=== PATIENT | female | born 1940 | race Caucasian/White ===

== ENCOUNTER 2020-07-02 08:07 | Outpatient (CLI) | payer MEDICARE, MEDICAID, SELFPAY ==
--- NOTE | 2020-07-02 08:18 | MM_ITS ---
WS: [id number] Bilateral screening digital mammogram, 07/02/2020 Clinical Data: SCREENING Comparison: 05/29/2019, 04/29/2018, 04/24/2017, 04/21/2016, 04/19/2015, 04/17/2014, 01/24/2013, 07/25/2011, , 06/29/2009, 06/23/2008, 06/13/2007, 06/12/2006. Findings: The breast parenchymal pattern shows heterogeneous density No spiculated masses or clustered calcific ations are seen. There are no secondary signs of carcinoma. There are lymph nodes in the right axilla . MM/[place] [id number] Impression: 1. Negative bilateral mammogram unchanged. 2. Recommend annual screening mammograms. BIRADS: 1-Negative FOLLOW UP: 1 Year Follow-up The CAD engineering drawings checker was used.
== END 2020-07-02 08:08 | disposition home or self-care (01) ==
LOC: RADSHAW 08:15
PROVIDERS: PCP Family Medicine; Visit Provider Family Medicine
DX: Z12.31 Encounter for screening mammogram for malignant neoplasm of breast (principal)
CPT/HCPCS: 77067

== ENCOUNTER 2021-09-19 10:55 | Outpatient (CLI) | payer MEDICARE, MEDICAID, SELFPAY ==
--- NOTE | 2021-09-19 11:01 | MM_ITS ---
WS: [id number] BILATERAL SCREENING DIGITAL MAMMOGRAM WITH CAD HISTORY: SCREENING COMPARISON: 07/02/2020, 05/29/2019 and 04/29/2018 Bilateral CC and MLO views submitted. Computer aided detection analyzed. Breast composition: There are scattered areas of fibroglandular density. No suspicious masses, microc alcifications or architectural distortion. Breast arterial calcifications. MM/[place] [id number] IMPRESSION: BI-RADS: 2-Benign FOLLOW UP: 1 Year Follow-up
== END 2021-09-19 10:56 | disposition home or self-care (01) ==
LOC: RADSHAW 10:59
PROVIDERS: PCP Family Medicine; Visit Provider Family Medicine
DX: Z12.31 Encounter for screening mammogram for malignant neoplasm of breast (principal)
CPT/HCPCS: 77067

== ENCOUNTER 2021-10-18 08:31 | Outpatient (CLI) | payer MEDICARE, MEDICAID, SELFPAY ==
--- NOTE | 2021-10-18 08:56 | XR_ITS ---
WS: [email or web address] SCREENING DEXA SCAN [facility] CLINICAL INFORMATION: OSTEOPOROSIS COMPARISON: 015 FINDINGS: The L1-L4 bone mineral density measures 1.023 g/cm2. This corresponds to a T score score of -1.3 and Z score of 0.4. Left femoral neck bone mineral density measures 0.691 g/cm2. This corresponds to a T score of -2.5 an d Z score of -0.5. Right femoral neck bone mineral density measures 0.673 g/cm2. This corresponds to a T score -2.7of an d Z score of -0.7. Mean femoral neck bone mineral density measures 0.682 g/cm2. This corresponds to a T score of -2.6 an d Z score of -0.6. XR/XR DEXA axial skeleton* [id number] IMPRESSION: Osteopenia in the lumbar spine. Osteoporosis in the femoral necks at the lower end of the range. Patient's FRAX calculated 10 year probability for major osteoporotic fracture i s 43 % and osteoporotic hip fracture is 32.5%.
== END 2021-10-18 08:32 | disposition home or self-care (01) ==
LOC: RAD 08:34
PROVIDERS: PCP Family Medicine; Visit Provider Family Medicine
DX: M81.0 Age-related osteoporosis without current pathological fracture (principal); M85.88 Other specified disorders of bone density and structure, other site
CPT/HCPCS: 77080

== ENCOUNTER 2022-07-18 16:16 | Outpatient (CLI) | payer MEDICARE, MEDICAID, SELFPAY ==
--- NOTE | 2022-07-18 16:47 | CT_ITS ---
WS: [id number] CT THORACIC SPINE TECHNIQUE: Noncontrast CT of the thoracic spine with coronal and sagittal reformatted images. CLINICAL INFORMATION: CHRONIC BACK PAIN COMPARISON: 06/06/22 DLP: 1233.[address] scans at [facility] use at least one of these dose optimization techniques: automated e xposure control; mA and/or kV adjustment per patient size (includes targeted exams where dose is matc hed to clinical indication); or iterative reconstruction. FINDINGS: Mild thoracic kyphosis. Mild chronic anterior wedging in the mid thoracic spine. No acute appearing c ompression fractures. Mild thoracic curve convex RIGHT. Postoperative changes lower cervical spine. Aortic calcification. Ectatic thoracic aorta partially visualized. Bilateral adrenal nodules likely a denomas largest on the RIGHT measuring 13 mm. Normal GE junction. Slight fibrosis the lung apices. Pa rtially visualized lungs are well aerated. No significant central canal stenosis. Mild facet arthropa thy lower thoracic spine. CT/CT thoracic spin wo con* [id number] IMPRESSION: 1. Mild thoracic curve. Mild thoracic kyphosis. 2. Mild chronic anterior wedging in the mid thoracic spine. No acute appearing compression fractures. 3. Prior postoperative changes lower cervical spine. 4. No other acute findings. 5. Slightly ectatic thoracic aorta partially visualized. Distal Aortic arch me asures 3.1 cm.
== END 2022-07-18 16:17 | disposition home or self-care (01) ==
PROVIDERS: PCP Family Medicine; Visit Provider Family Medicine
DX: M40.294 Other kyphosis, thoracic region (principal); M48.54XA Collapsed vertebra, not elsewhere classified, thoracic region, initial encounter for fracture; I77.810 Thoracic aortic ectasia
CPT/HCPCS: 72128

== ENCOUNTER 2022-10-19 08:17 | Outpatient (CLI) | payer MEDICARE, MEDICAID, SELFPAY ==
--- NOTE | 2022-10-19 08:26 | MM_ITS ---
WS: [id number] BILATERAL SCREENING DIGITAL TOMOSYNTHESIS MAMMOGRAM WITH CAD HISTORY: SCREENING COMPARISON: 09/19/2021, 07/02/2020 Bilateral CC and MLO views with tomosynthesis and synthetic mammography submitted. Computer aided det ection analyzed. Breast composition: The breasts are heterogeneously dense, which may obscure small masses. No suspici ous masses, microcalcifications or architectural distortion. Benign calcifications in each breast. MM/[place] [id number] IMPRESSION: BI-RADS: 2-Benign FOLLOW UP: 1 Year Follow-up
== END 2022-10-19 08:18 | disposition home or self-care (01) ==
LOC: RAD 08:22
PROVIDERS: PCP Family Medicine; Visit Provider Family Medicine
DX: Z12.31 Encounter for screening mammogram for malignant neoplasm of breast (principal)
CPT/HCPCS: 77063; 77067

== ENCOUNTER → 2022-12-21 15:38 | Outpatient (BNVA) | payer MEDICARE, MEDICAID, SELFPAY | PROVIDERS: PCP Family Medicine; Visit Provider Dermatology | DX: L81.4 Other melanin hyperpigmentation (principal); L82.1 Other seborrheic keratosis; Z85.828 Personal history of other malignant neoplasm of skin | CPT/HCPCS: 99213 ==

== ENCOUNTER 2023-02-07 06:15 | Emergency (ER) | payer MEDICARE, MEDICAID, SELFPAY ==
[2023-02-07 06:16] VITALS: BMI 25.0
--- NOTE | 2023-02-07 06:16 | W.ED.NAVMDI ---
HPI - Nausea/Vomiting/Diarrhea General: Chief complaint: Nausea/Vomiting/Diarrhea Stated complaint: diarrhea Time Seen by Provider: 02/07/23 06:16 History of Present Illness: Ms. Mejia is an 82-year-old lady presenting to the emergency department for abdominal pain with diarrhea. Notes onset of symptoms a few hours ago and acute. Denies known specific provoking event. Since that time has had numerous episodes of nonbloody watery diarrhea associated with generalized abdominal pain with radiation to the back. The worst pain is at the patient's rectum. Intensity symptoms moderate to severe. Course has persisted. No other specific changes in health, exacerbating, or alleviating factors identified. Onset (ago): hour(s) Description of diarrhea: watery Associated nausea: Yes Associated abdominal pain: Yes Location of pain: Diffuse Radiation: other (Back) Severity: severe Quality: aching Exacerbating factors: none Relieving factors: none Associated symtoms: Reports nausea; Denies chest pain, fevers/chills, short of breath or other (Blood in stool, dark tarry stools) Review of Systems General: Reports: 10 or more systems reviewed and unremarkable except in HPI and below Card: Denies: chest pain GI: Reports: nausea PFSH ED PFSH: Medical History Fibromyalgia GERD (gastroesophageal reflux disease) HTN (hypertension) Hypothyroid Surgical History History of hysterectomy Social History Smoking and tobacco status: never smoked Physical Exam Const: COMMON NORMALS: alert GENERAL APPEARANCE: cooperative and well developed HENMT: COMMON NORMALS: normocephalic and atraumatic HEAD & SCALP: normocephalic and atraumatic Eye: COMMON NORMALS: conjunctivae normal CONJUNCTIVA: Yes conjunctivae normal SCLERA: sclerae normal Neck/C-Spine: COMMON NORMALS: supple GENERAL: Yes trachea midline Resp: COMMON NORMALS: clear to auscultation bilaterally EFFORT & INSPECTION: Yes able to speak in complete sentences AUSCULTATION: clear to auscultation bilaterally Cardio: COMMON NORMALS: regular rate and regular rhythm RATE: regular rate RHYTHM: regular rhythm GI: COMMON NORMALS: Soft to palpation PALPATION: Yes Soft to palpation, Yes Tenderness to palpation present (GI), Yes Guarding due to palpation present (GI) and No Rigid due to palpation OTHER: RN present, external hemorrhoids, no evidence of rectal prolapse. Extremity: GENERAL: Yes normal exam except as noted and No edema Neuro: COMMON NORMALS: moves all extremities SENSORIUM/ORIENTATION: Yes alert and No Orientation impaired Psych: COMMON NORMALS: mental status grossly normal and Normal thought process present THOUGHT PROCESS: Normal thought process present Course Vital Signs: Vital signs: Vital Signs Temperature 97.2 F L 02/07/23 06:19 Pulse Rate 72 02/07/23 06:52 Respiratory Rate 18 02/07/23 06:52 Blood Pressure 159/77 02/07/23 07:42 Pulse Oximetry 100 02/07/23 09:10 Oxygen Delivery Me thod Room Air 02/07/23 07:42 MDM - Nausea/Vomiting/Diarrhea Medical Decision Making 82-year-old lady presenting with abdominal and rectal pain. Exam as above. Nontoxic. Abdominal tenderness and guarding with no evidence of acute surgical abdomen. Labs with no leukocytosis, normal hemoglobin and platelet count. Metabolic panel without significant derangement. Overall no clear explanation of symptoms. CT demonstrates likely proctitis. Constipation also noted. Incidental findings discussed with patient. Patient treated during ED course with analgesia and antiemetic. She was treated with oral and MS medications and had bowel movement with improvement in pain. Plan to treat with antibiotics for proctitis and continue outpatient medication regimen for constipation. The results of ED evaluation were discussed with the patient including prescriptions and/or symptomatic cares (if applicable) including appropriate and responsible use, followup plan, and return precautions. The patient verbalized understanding and felt safe for discharge. Medical Records I reviewed the patient's medical records. Lab Data I reviewed the patient's lab results. 02/07/23 06:26 02/07/23 06:26 Radiology Impressions Abdomen/Pelvis CT 02/07/23 06:21 IMPRESSION: 1. Marked rectal distention with circumferential soft tissue edema, rectal wall thickening and presacral edema. Findings may all be related to advanced proctitis. Patient should be evaluated for distal anal lesion causing an obstruction. No adenopathy is identified. 2. Diffuse constipation. 3. Mild atherosclerosis aorta. 4. Stable bilateral adrenal adenomas. Laboratory Results WBC 9.8 10^3/uL (4.0-10.0) 02/07/23 06: RBC 5.49 10^6/uL (4.1-5.3) H 02/07/23 06:26 Hgb 14.5 g/dL (11.5-15.3) 02/07/23 06: Hct 47.2 % (37.0-47.0) H 02/07/23 06: MCV 86.0 fl (81-99) 02/07/23 06: MCH 26.4 pg (28.0-34.0) L 02/07/23 06: MCHC 30.7 g/dL (30.0-36.0) 02/07/23 06: RDW 13.3 % (12.1-15.1) 02/07/23 06: Plt Count 238 10^3/cmm (130-400) 02/07/23 06: MPV 11.5 fL (7.4-10.4) H 02/07/23 06: Neut % (Auto) 77.3 % 02/07/23 06:26 Lymph % (Auto) 14.9 % 02/07/23 06:26 [place] % (Auto) 7.0 % 02/07/23 06: Eos % (Auto) 0.2 % 02/07/23 06: Baso % (Auto) 0.3 % 02/07/23 06: Neut # (Auto) 7.54 10^3/uL (1.8-7.7) 02/07/23 06: Lymph # (Auto) 1.5 10^3/uL (0.8-4.8) 02/07/23 06:26 [place] # (Auto) 0.7 10^3/uL (0.2-0.9) 02/07/23 06: Eos # (Auto) 0.0 10^3/uL (0.0-0.8) 02/07/23 06: Baso # (Auto) 0.0 10^3/uL (0.0-0.1) 02/07/23 06:26 Nucleated RBC % (auto) 0 % 02/07/23 06: Nucleated RBCs # 0.0 /100WBC 02/07/23 06:26 Sodium 139 mmol/L (136-145) 02/07/23 06:26 Potassium 4.3 mmol/L (3.5-5.1) 02/07/23 06:26 Chloride 100 mmol/L (98-107) 02/07/23 06:26 Carbon Dioxide 27 mmol/L (22-29) 02/07/23 06:26 Anion Gap 16.3 (5-19) 02/07/23 06:26 BUN 13 mg/dL (8-23) 02/07/23 06:26 Creatinine 0.6 mg/dL (0.5-0.9) 02/07/23 06:26 GFR Calculation Not Reportable 02/07/23 06:26 Glucose 94 mg/dL (65-115) 02/07/23 06:26 Calculated Osmolality 288 mOsm/kg (285-295) 02/07/23 06:26 Calcium 10.0 mg/dL (8.5-10.5) 02/07/23 06:26 Total Bilirubin 0.3 mg/dL (0.15-1.2) 02/07/23 06:26 AST 25 U/L (0-32) 02/07/23 06:26 ALT 20 U/L (0-33) 02/07/23 06:26 Alkaline Phosphatase 87 U/L (35-105) 02/07/23 06:26 Total Protein 7.1 g/dL (6.6-8.7) 02/07/23 06:26 Albumin 4.4 g/dL (3.5-5.2) 02/07/23 06:26 Globulin 2.7 g/dL (1.3-4.6) 02/07/23 06:26 Lipase 40 U/L (13-60) 02/07/23 06:26 Discharge Plan Discharge Patient Disposition: Home Clinical Impression: Acute proctitis, Constipation, Abdominal pain Condition: Stable Prescriptions: New Miralax 17 gram/dose powder 17 g PO TID PRN (Reason: constipation) Qty: 238 0RF No Action latanoprost 0.005 % drops 1 drp ophthalmic (eye) BEDTIME Rx Instructions: both eyes Benadryl Allergy 25 mg Tablet 25 mg PO DAILY PRN (Reason: Allergy Symptoms) brimonidine 0.2 % drops 1 drp ophthalmic (eye) BID Rx Instructions: both eyes timolol maleate 0.5 % drops 1 drp ophthalmic (eye) QAM Rx Instructions: both eyes Discharge Orders: Discharge ED (Routine); Ordered 02/07/23 Ordered By: Keon Pitts Referrals: Benitez Plok MD [Primary Care Provider] - Discharge Diet: Clear Liquid Discharge Activity: Increase activity as tolerated Patient Instructions: Constipation (ED), Proctitis (ED), Abdominal Pain (ED), Opioid Safety Activity Restrictions/Additional Instructions: Thank you for visiting the emergency department. You were seen and evaluated for abdominal pain with diarrhea. The most likely cause of your symptoms is related to inflammation of the rectum and chronic constipation. We are pleased that you had improvement with treatment in the emergency department. For constipation you require continued treatment. I will prescribe MiraLAX. For 3 days take MiraLAX 1 capful 3 times daily mixed with electrolyte solution as prescribed on packaging. Then adjust between 0 and 3 times daily for multiple applesauce consistency stools per day. I will also prescribe antibiotics for possible underlying infection as cause of irritation/inflammation. Please follow-up with your primary care provider. Return to the emergency department for uncontrolled pain, inability to pass gas or stool, blood in stool, or anything else that you are concerned about and feel needs emergency department evaluation. Coding Level of Care Code ED Registered Vascular Technologist (Rvt) for Eduin Miranda
[2023-02-07 06:19] VITALS: BP 153/83; PULSE 84; RESP 17; TEMP 36.2; O2SAT 100
--- NOTE | 2023-02-07 06:21 | CT_ITS ---
WS: [id number] CT ABDOMEN AND PELVIS WITH CONTRAST HISTORY: diarrhea, generalized abd pain TECHNIQUE: Imaging performed of the abdomen and pelvis with IV contrast. Single phase imaging of the abdomen. Coronal and sagittal reformats are submitted. All CT scans at [facility] use at [address] one of these dose optimization techniques: automated exposure control; mA and/or kV adjustment per patient size (includes targeted exams where dose is matched to clinical indication); or iterative re construction. IV CONTRAST: Omnipaque 350; 100 mL IV. Oral contrast: No DLP: 437.81 mGy.cm COMPARISON: 03/29/2015 Lower thorax: Mild dependent changes at the lung bases. No pneumonia. Heart is normal size. No hiatal hernia. Liver/biliary system: Normal size with granulomata. Gallbladder: Normal. No gallstones or wall thickening. No pericholecystic fluid. Pancreas: Normal size pancreas and pancreatic duct. No adjacent inflammation. Spleen: Normal size spleen. No mass or infarct. Adrenal glands: Bilateral stable adrenal nodules of low attenuation consistent with adenomas. No inte rval change since 2014. Right kidney: Normal. Left kidney: Normal. Aorta: Mild atherosclerosis with no aneurysm. Lymphadenopathy: None. Free fluid: No free fluid. GI tract: Nondistended stomach. No small bowel obstruction. There is marked fecal retention throughou t a majority of the colon. Towards the rectum the fecal retention increases. Transverse diameter of t he rectum 7.5 cm. There is circumferential edema and wall thickening surrounding the rectum. Thickeni ng and irregularity of the mucosa but no discrete mass. Scattered diverticula without acute diverticu litis. Appendix is not visualized. Abdominal wall: Unremarkable abdominal wall. No hernia. Pelvis: Urinary bladder is well distended. Presacral soft tissue thickening and edema at the level of the rectum. Bones: Unremarkable. CT/CT abdomen pelvis w con* [id number] IMPRESSION: 1. Marked rectal distention with circumferential soft tissue edema, rectal wal l thickening and presacral edema. Findings may all be related to advanced proct itis. Patient should be evaluated for distal anal lesion causing an obstruction . No adenopathy is identified. 2. Diffuse constipation. 3. Mild atherosclerosis aorta. 4. Stable bilateral adrenal adenomas.
[2023-02-07 06:33] LABS: Basophils % 0.3 %; Eosinophils % 0.2 %; Hematocrit 47.2 % (37.0-47.0); Hemoglobin 14.5 g/dL (11.5-15.3); Lymphocytes # 1.5 10^3/uL (0.8-4.8); Lymphocytes % 14.9 %; Mean Corpuscular HGB Conc 30.7 g/dL (30.0-36.0); Mean Corpuscular Hemoglobin 26.4 pg (28.0-34.0); Mean Platelet Volume 11.5 fL (7.4-10.4); Monocytes # 0.7 10^3/uL (0.2-0.9); Neutrophils # 7.54 10^3/uL (1.8-7.7); Neutrophils % 77.3 %; Nucleated Red Blood Cells % 0 %; Platelet Count 238 10^3/cmm (130-400); Red Blood Count 5.49 10^6/uL (4.1-5.3); Red Cell Distribution Width 13.3 % (12.1-15.1); White Blood Count 9.8 10^3/uL (4.0-10.0)
[2023-02-07 06:40] VITALS: RESP 18
[2023-02-07] MEDS: ondansetron 2 mg/ML SDV 2 mL 4 MG IVP (06:40)
[2023-02-07] MEDS: morphine 4 mg/mL SDV 1 mL IVP (06:40)
[2023-02-07 06:52] VITALS: BP 146/96; PULSE 72; RESP 18; O2SAT 100
[2023-02-07] MEDS: fentaNYL 50 mcg/mL INJ 2mL 25 MCG IVP (07:14)
[2023-02-07 07:18] LABS: Alanine Aminotransferase 20 U/L (0-33); Albumin Level 4.4 g/dL (3.5-5.2); Alkaline Phosphatase 87 U/L (35-105); Aspartate Amino Transferase 25 U/L (0-32); Blood Urea Nitrogen 13 mg/dL (8-23); Carbon Dioxide 27 mmol/L (22-29); Chloride 100 mmol/L (98-107); Globulin 2.7 g/dL (1.3-4.6); Glucose 94 mg/dL (65-115); Lipase 40 U/L (13-60); Osmolality Calculated 288 mOsm/kg (285-295); Sodium 139 mmol/L (136-145); Total Bilirubin 0.3 mg/dL (0.15-1.2); Total Protein 7.1 g/dL (6.6-8.7)
[2023-02-07 07:24] LABS: Anion Gap 16.3 (5-19); Potassium 4.3 mmol/L (3.5-5.1)
[2023-02-07] MEDS: iohexol 350 mg/mL 500 mL Btl (per mL) IV (07:25)
[2023-02-07 07:42] VITALS: BP 159/77; O2SAT 100
[2023-02-07] MEDS: polyethylene glycol 3350 Pkt 17 gm PO (08:45)
[2023-02-07] MEDS: lactulose oral liq 20 gm/30 mL UDC PO (08:45)
[2023-02-07] MEDS: lidocaine 2% Urojet 20 mL TOPICAL (08:47)
[2023-02-07] MEDS: Fleet Enema 133 mL Enema PR (09:09)
[2023-02-07 09:10] VITALS: O2SAT 100
== END 2023-02-07 10:11 | disposition home or self-care (01) ==
PROVIDERS: Emergency Provider Emergency Medicine; PCP Family Medicine
DX: K62.89 Other specified diseases of anus and rectum (principal); K59.00 Constipation, unspecified
CPT/HCPCS: 74177; 80053; 83690; 85025; 96374; 96375; 99284; J2270; J2405; J3010; Q9967

== ENCOUNTER → 2023-05-22 08:55 | Outpatient (BNVA) | payer MEDICARE, MEDICAID, SELFPAY | PROVIDERS: PCP Family Medicine; Referring Provider Family Medicine; Visit Provider Surgery | DX: R13.10 Dysphagia, unspecified (principal) | CPT/HCPCS: 99202 ==

== ENCOUNTER 2023-08-31 08:09 | Outpatient (CLI) | payer MEDICARE, MEDICAID, SELFPAY ==
--- NOTE | 2023-08-31 08:23 | FL_ITS ---
WS: [email or web address] [place] barium swallow [id number] REASON FOR EXAM: DYSPHAGIA/GERD FLUOROSCOPY TIME: 1min [id number] # OF SPOT FILMS: Multiple FINDINGS: Patient was examined in the upright AP and lateral projections and in the prone IVY and supine positi ons. The swallowing of barium was monitored fluoroscopically and recorded with multiple spot films. There is moderate narrowing of the cervical esophagus C5-C7. This is produced by prominent cricophary ngeus muscle band in the anterior esophagus and posterior impingement by osteophyte complex at C6-C7. A tiny Zenker's diverticulum is also identified. The remainder of the cervical esophagus into the th oracic esophagus is unremarkable. There is moderate impingement on the esophagus from the aortic arch. No stricture identified. Small sliding hiatal hernia with minimal reflux. Intermittent loss of the primary peristaltic wave in the esophagus degenerating into tertiary contrac tions with prolonged retention of barium in the mid thoracic esophagus. IMPRESSION: Moderate narrowing of the cervical esophagus as above. 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
== END 2023-08-31 08:10 | disposition home or self-care (01) ==
LOC: RAD 08:09
PROVIDERS: PCP Family Medicine; Visit Provider Surgery
DX: R13.10 Dysphagia, unspecified (principal); K21.9 Gastro-esophageal reflux disease without esophagitis; K44.9 Diaphragmatic hernia without obstruction or gangrene; R10.13 Epigastric pain
CPT/HCPCS: 74220

== ENCOUNTER 2023-10-31 14:37 | Outpatient (CLI) | payer MEDICARE, MEDICAID, SELFPAY ==
--- NOTE | 2023-10-31 14:40 | MM_ITS ---
WS: [email or web address] BILATERAL 3D TOMOSYNTHESIS DIGITAL SCREENING MAMMOGRAPHY WITH CAD CLINICAL INFORMATION: SCREENING HISTORY: Screening mammogram. No current complaints. COMPARISON: 10/19/2022 TECHNIQUE: Bilateral CC and MLO views. FINDINGS: The breasts are composed of heterogeneous fibroglandular density tissue, which can limit the detectio n of small underlying mass lesions. No suspicious mass, asymmetry, calcifications, or architectural d istortion. No evidence of malignancy. Vascular calcifications. Incidental punctate calcifications. IMPRESSION: MM/[place] [id number] BI-RADS: 2-Benign FOLLOW UP: 1 Year Follow-up Recommend return to annual screening mammography.
== END 2023-10-31 14:38 | disposition home or self-care (01) ==
LOC: RAD 14:37
PROVIDERS: PCP Family Medicine; Visit Provider Family Medicine
DX: Z12.31 Encounter for screening mammogram for malignant neoplasm of breast (principal)
CPT/HCPCS: 77063; 77067

== ENCOUNTER → 2023-12-20 08:40 | Outpatient (BNVA) | payer MEDICARE, MEDICAID, SELFPAY | PROVIDERS: PCP Family Medicine; Visit Provider Nurse Practitioner Family | DX: L30.4 Erythema intertrigo (principal); L82.0 Inflamed seborrheic keratosis; L81.4 Other melanin hyperpigmentation; L82.1 Other seborrheic keratosis; D18.01 Hemangioma of skin and subcutaneous tissue; Z85.828 Personal history of other malignant neoplasm of skin | CPT/HCPCS: 17110; 99214 ==

== ENCOUNTER → 2024-01-24 09:09 | Outpatient (BNVA) | payer MEDICARE, MEDICAID, SELFPAY | PROVIDERS: PCP Family Medicine; Visit Provider Nurse Practitioner Family | DX: L30.4 Erythema intertrigo (principal); L81.4 Other melanin hyperpigmentation | CPT/HCPCS: 99213 ==

== ENCOUNTER 2024-11-04 08:54 | Outpatient (CLI) | payer MEDICARE, MEDICAID, SELFPAY ==
--- NOTE | 2024-11-04 09:00 | MM_ITS ---
WS: [email or web address] BILATERAL 3D TOMOSYNTHESIS DIGITAL SCREENING MAMMOGRAPHY WITH CAD CLINICAL INFORMATION: SCREENING HISTORY: Screening mammogram. No current complaints. COMPARISON: 2023 TECHNIQUE: Bilateral CC and MLO views. FINDINGS: The breasts are composed of heterogeneous fibroglandular density tissue, which can limit the detection of small underlying mass lesions. No suspicious mass, asymmetry, calcifications, or architectural distortion. No evidence of malignancy. Vascular calcifications. MM/MM [facility] tomosynthesis [id number] IMPRESSION: DENSITY: The breasts are heterogeneously dense, which may obscure small masses. BI-RADS: 2 - Benign FOLLOW UP: 1 Year Follow-up Recommend return to annual screening mammography.
== END 2024-11-04 08:55 | disposition home or self-care (01) ==
LOC: RAD 08:56
PROVIDERS: PCP Family Medicine; Visit Provider Family Medicine
DX: Z12.31 Encounter for screening mammogram for malignant neoplasm of breast (principal); R92.333 Mammographic heterogeneous density, bilateral breasts; R92.1 Mammographic calcification found on diagnostic imaging of breast
CPT/HCPCS: 77063; 77067

== ENCOUNTER → 2025-01-27 08:28 | Outpatient (BNVA) | payer MEDICARE, MEDICAID, SELFPAY | PROVIDERS: PCP Family Medicine; Visit Provider Nurse Practitioner Family | DX: L72.0 Epidermal cyst (principal); L57.8 Other skin changes due to chronic exposure to nonionizing radiation; L81.4 Other melanin hyperpigmentation; D22.5 Melanocytic nevi of trunk; L82.1 Other seborrheic keratosis; Z08 Encounter for follow-up examination after completed treatment for malignant neoplasm; Z85.828 Personal history of other malignant neoplasm of skin | CPT/HCPCS: 99213 ==

== ENCOUNTER → 2025-04-14 09:10 | Outpatient (BNVA) | payer MEDICARE, MEDICAID, SELFPAY | PROVIDERS: PCP Family Medicine; Visit Provider Nurse Practitioner Family | DX: L57.8 Other skin changes due to chronic exposure to nonionizing radiation (principal); Z08 Encounter for follow-up examination after completed treatment for malignant neoplasm; Z85.828 Personal history of other malignant neoplasm of skin; D48.5 Neoplasm of uncertain behavior of skin | CPT/HCPCS: 11104; 99213 ==